=== PATIENT | female | born 1955 | race Caucasian/White ===

== ENCOUNTER 2020-06-02 13:50 | Outpatient (CLI) | payer BC, SELFPAY ==
--- NOTE | 2020-06-02 13:53 | ECG_ITS ---
Measurements Intervals [place] Rate: 71 P: 27 TX: 150 QRS: 6 QRSD: 86 T: 44 QT: 410 QTc: 446 Interpretive Statements SINUS RHYTHM BASELINE ARTIFACT- AVF NORMAL ECG Electronically Signed On 06-02-2020 14:21:14 CDT by Judd Jennings D.O.
[2020-06-02 14:32] LABS: Blood Urea Nitrogen 11 mg/dL (7-17); Calcium 8.9 mg/dL (8.4-10.2); Carbon Dioxide 29 mmol/L (22-30); Chloride 102 mmol/L (98-107); Estimated Glomerular Filt Rate 56; Glucose 112 mg/dL (65-105); Potassium 3.8 mmol/L (3.4-5.0); Sodium 140 mmol/L (137-145)
== END 2020-06-02 13:51 | disposition home or self-care (01) ==
PROVIDERS: Anesthesiology; PCP Family Medicine; Visit Provider Urology
DX: E11.9 Type 2 diabetes mellitus without complications (principal)
CPT/HCPCS: 36415; 80048; 93005

== ENCOUNTER 2020-06-09 00:27 | Outpatient (CLI) | payer BC, SELFPAY ==
[2020-06-09 19:01] LABS: SARS-CoV-2 RNA PCR Negative
== END 2020-06-09 00:28 | disposition home or self-care (01) ==
LOC: ANHCOVIDDT 00:28
PROVIDERS: PCP Family Medicine; Visit Provider Urology
DX: Z01.818 Encounter for other preprocedural examination (principal); Z11.59 Encounter for screening for other viral diseases
CPT/HCPCS: 87635; C9803; U0003

== ENCOUNTER 2020-06-11 00:59 | Day surgery (SDC) | payer BC, SELFPAY ==
[2020-05-31 17:05] VITALS: BMI 32.4
--- NOTE | ~2020-06-11 | XR_ITS ---
EXAMINATION: XR fluoroscopy <1hr DATE: 06/11/2020 13:32 INDICATION: InterStim removal TECHNIQUE: Single fluoroscopic spot images of the central pelvis were obtained during procedure perfo rmed by Dr. Watson. Radiologist was not present for the imaging or procedure. The amount of fluorosc opy time used during this procedure was 0.2 minutes. COMPARISON: 08/06/2018 FINDINGS: The tip of a forcep projects over the InterStim catheter where it enters through the right S3 sacral foramen. Increased density suggesting hypertrophic change in the region of the left L5-S1 facet joint . IMPRESSION: 1. Fluoroscopy utilized for localization during InterStim removal. See procedure note for further det ail. Reviewed, dictated and finalized at location A. IMPRESSION: 1. Fluoroscopy utilized for localization during InterStim removal. See procedur e note for further detail.
--- NOTE | 2020-06-11 10:17 | WPDHPUPDATE1 ---
History and Physical Update Update Date/Time: 06/11/20 10:17 History and Physical has been reviewed, including an updated exam of the patient. There are NO changes in the patient's condition. Risks, benefits, and alternatives have been discussed and questions answered. Patient agrees to proceed with procedure.
[2020-06-11 12:32] VITALS: BP 148/82; PULSE 73; RESP 18; TEMP 36.1; O2SAT 98
[2020-06-11] MEDS: LACTATED RINGERS 1,000 ML 30 ML IV CONT (12:40)
--- NOTE | 2020-06-11 12:48 | WPDANESEPPF ---
Anes - Initial Pre Proc Eval Procedure: Operation Date: 06/11/20 13:00 Proposed Procedures p Removal of Interstim - Yury Watson MD Date/Time: 06/11/20 12:48 Surgeon: Yury Watson MD Pre Op Diagnosis: Over Active Bladder/ Stress Incontinence Patient Data Age: 65 Gender: F Height: 5 ft 5 in Weight: 88.45 kg Allergies Allergy/AdvReac Type Severity Reaction Status Date / Time erythromycin base Allergy Unknown RESPIR. Unverified 10/28/19 15:08 DISTRESS onion AdvReac Vomiting Verified 05/31/20 16:02 Home Medications Medication Instructions Recorded Confirmed Type azathioprine 50 mg PO TID 05/31/20 05/31/20 History buspirone 30 mg PO DAILY 05/31/20 05/31/20 History diclofenac sodium 1 % TOPICAL DAILY 05/31/20 05/31/20 History duloxetine 120 mg PO DAILY 05/31/20 05/31/20 History famotidine 40 mg PO DAILY 05/31/20 05/31/20 History fluticasone propion-salmeterol 2 puff INHALATION BID 05/31/20 05/31/20 History [Advair HFA] furosemide 40 mg PO DAILY 05/31/20 05/31/20 History latanoprost 1 drp OPHTHALMIC (EYE) DAILY 05/31/20 05/31/20 History levothyroxine 137 mcg PO DAILY 05/31/20 05/31/20 History lisinopril 10 mg PO DAILY 05/31/20 05/31/20 History metformin 500 mg PO BID 05/31/20 05/31/20 History metoprolol succinate 50 mg PO DAILY 05/31/20 05/31/20 History omeprazole 40 mg PO DAILY 05/31/20 05/31/20 History potassium chloride 10 meq PO DAILY 05/31/20 05/31/20 History pravastatin 20 mg PO DAILY 05/31/20 05/31/20 History sitagliptin [Januvia] 50 mg PO DAILY 05/31/20 05/31/20 History spironolactone 25 mg PO DAILY 05/31/20 05/31/20 History Patient hx anesthesia problems: post op nausea/vomiting Family hx anesthesia problems: none PMFSH Past Medical History Medical History (Updated 06/11/20 @ 12:48 by Davian Posada MD) Depression GERD (gastroesophageal reflux disease) Hyperlipidemia Hypertension Migraine Social History Social History (System 10/28/19 @ 15:08 by Kaylin Martínez) Smoking packs per day: 0.5 Smoking cigarettes per day: 10.0 Years smoked: 20 Smoking pack-years: 10.00 Smoking status: Former smoker Substance use: former Last use: 1990 Living arrangements: with family Gender identity (if verbalized by the patient): Female Spiritual care concerns: No Anes - Eval Final PreProcedure Day of Procedure 06/11/20 12:48 Patient weight: overweight Heart: regular rate and rhythm Lungs: clear to auscultation Airway: Mallampati scale class II Neurological: alert and oriented Last oral intake: >/= 8 hours ASA classification: III Emergent: no Anesthetic plan: proceed Anesthesia type and monitoring: general GIVS and standard monitoring Informed Consent: The patient's anesthetic plan and its attendant risks and benefits were discussed with the patient/family/POA. Questions were solicited and answers provided to the satisfaction of the patient/family/POA.
[2020-06-11] MEDS: SCOPOLAMINE 1.5 MG PATCH TRANSDERM (12:50)
[2020-06-11] MEDS: ceFAZolin 2 GM/D5W 50 ML 2 GM/50 ML BAG IVPB (12:54)
[2020-06-11] MEDS: BUPIVACAINE/EPINEPHRINE 0.25% 50 ML VIAL 30 ML INFILTRATE (13:09)
[2020-06-11 13:11] LABS: Glucose Point of Care 123 (65-105)
--- NOTE | 2020-06-11 13:28 | PM.PROC ---
Procedure Note - Detailed Date of procedure: 06/11/20 Pre-op diagnosis: Over Active Bladder/ Stress Incontinence Procedure performed: Removal of InterStim system [id number], [id number] Description of procedure: The patient understands the risks of bleeding, infection, incomplete removal. They agreed to proceed. They were correctly identified and informed consent obtained. There brought to the operating room. There placed in the prone position. Lower back and buttock were prepped and draped in a sterile fashion. I anesthetized the skin over the pulse generator. I incised the skin and removed the pulse generator. I did use fluoroscopy to identify my lead. I anesthetized the skin and incised the skin over the lead. The lead was encountered and removed in its entirety. I then removed the capsule around the pulse generator. Wounds were vigorously irrigated. Hemostasis was assured. The subcutaneous tissue was closed with 2 0 Vicryl. The skin was closed with 4 0 Vicryl. [place] was applied. There then awakened and transferred to the PACU in stable condition. Anesthesia: MAC Surgeon: Yury Watson MD Drains: No Packing: No Pathology: none sent Complications: No immediate complications Condition: stable Disposition: PACU
[2020-06-11 13:38] VITALS: BP 125/72; PULSE 74; RESP 16; O2SAT 98
[2020-06-11 14:05] VITALS: BP 145/90; PULSE 66; RESP 16; O2SAT 98
[2020-06-11 14:32] LABS: Glucose Point of Care 96 (65-105)
[2020-06-11 14:35] VITALS: BP 174/94; PULSE 54; RESP 15
== END 2020-06-11 14:30 | disposition home or self-care (01) ==
PROVIDERS: PCP Family Medicine; Visit Provider Urology
PROC: (CPT 64585; principal; 2020-06-11 13:00)
DX: Z45.42 Encounter for adjustment and management of neurostimulator (principal); N39.3 Stress incontinence (female) (male); N32.81 Overactive bladder; I10 Essential (primary) hypertension; E78.5 Hyperlipidemia, unspecified; K21.9 Gastro-esophageal reflux disease without esophagitis; F32.9 Major depressive disorder, single episode, unspecified; Z79.84 Long term (current) use of oral hypoglycemic drugs; Z87.891 Personal history of nicotine dependence
CPT/HCPCS: 64585; 64595; 76000; A9270; J0690; J1200; J2250; J2405; J2704; J3010; J7120